=== PATIENT | male | born 1975 | race Caucasian/White ===

== ENCOUNTER 2019-05-22 10:02 | Emergency (ER) | payer BC ==
--- NOTE | 2019-05-22 10:43 | ER ---
Nurse's Notes [facility] Name: Fidel Betancourt Age: 43 yrs Sex: Male : 1975 Arrival Date: 05/22/2019 Time: 10:05 Bed 12 Private MD: Diagnosis: Puncture wound with foreign body of right middle finger without damage to nail Presentation: 05/22 10:21 Presenting complaint: Patient states: fish hook to right middle finger. Transition of iw care: patient was not received from another setting of care. Onset of symptoms was May 22, 2019. Risk Assessment: Do you want to hurt yourself or someone else? Patient reports no desire to harm self or others. Initial Sepsis Screen: Does the patient meet any 2 criteria? No. Patient's initial sepsis screen is negative. Does the patient have a suspected source of infection? No. Patient's initial sepsis screen is negative. Care prior to arrival: None. 10:21 Method Of Arrival: Ambulatory iw 10:21 Acuity: ALYCIA 4 iw Triage Assessment: 10:48 General: Appears in no apparent distress. Behavior is calm. iw Historical: - Allergies: 10:22 PENICILLINS; iw - Immunization history:: Last tetanus immunization: 5 years. - Social history:: Smoking status: unknown. - Ebola Screening: : Patient negative for fever greater than or equal to 101.5 degrees Fahrenheit, and additional compatible Ebola Virus Disease symptoms Patient denies exposure to infectious person Patient denies travel to an Ebola-affected area in the 21 days before illness onset No symptoms or risks identified at this time. Screenin:45 Abuse screen: Denies threats or abuse. Denies injuries from another. Nutritional iw screening: No deficits noted. Tuberculosis screening: No symptoms or risk factors identified. Fall Risk None identified. Assessment: 10:35 General: Appears in no apparent distress. Behavior is calm, cooperative. Pain: iw Complains of pain in palmar aspect of distal phalanx of right middle finger. Neuro: Level of Consciousness is awake, alert, obeys commands, Oriented to person, place, time, situation, Moves all extremities. Cardiovascular: Patient's skin is warm and dry. Respiratory: Respiratory effort is even, unlabored, Respiratory pattern is regular, symmetrical. GI: No signs and/or symptoms were reported involving the gastrointestinal system. Derm: Skin is intact, is healthy with good turgor. Musculoskeletal: Range of motion: intact in all extremities. Injury Description: Puncture sustained to palmar aspect of distal phalanx of right middle finger was sustained 30-60 minutes ago. Vital Signs: 10:23 BP 175 / 81; Pulse 88; Resp 16; Temp 98.2; Pulse Ox 100% on R/A; iw ED Course: 10:05 Patient arrived in ED. mr 10:17 Destiny Fam FNP-C is [facility]. kb 10:17 Dmitry Triana MD is Attending Physician. kb 10:20 Jessica Parrish, RN is Primary Nurse. iw 10:22 Triage completed. iw 10:24 Arm band placed on. iw 10:35 Patient has correct armband on for positive identification. iw 10:35 Assist provider with foreign body removal of a fish hook from right middle finger using iw hemostats, Set up for procedure. Performed by Destiny SAVAGE Patient tolerated well. Patient did not have IV access during this emergency room visit. 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 Exp: iw 10/18/2019. Lot #: [id number]. } Route: IM; Site: right deltoid; 10:59 Follow up: Response: No adverse reaction iw 10:35 Drug: Doxycycline 100 mg Route: PO; iw 10:59 Follow up: Response: No adverse reaction iw 10:49 Drug: Lidocaine (1 %) 1 vials Volume: 5 ml; Route: Infiltration; iw Outcome: 10:43 Discharge ordered by . kb 10:57 Discharged to home ambulatory, with family. iw 10:57 Condition: good 10:57 Discharge instructions given to patient, family, Instructed on discharge instructions, follow up and referral plans. medication usage, Demonstrated understanding of instructions, follow-up care, medications, Prescriptions given X 1. 10:58 Patient left the ED. iw Signatures: Destiny Fam FNP-C FNP-Xochitl Arleen Lucio Jessica Parrish, RN RN iw
[2019-05-22] MEDS ORDERED: LIDOCAINE 1% MPF 5 ML VIAL ONE (10:44)
--- NOTE | 2019-05-22 10:44 | EDPHYS ---
Physician Documentation [facility] Name: Fidel Betancourt Age: 43 yrs Sex: Male : 1975 Arrival Date: 05/22/2019 Time: 10:05 Bed 12 Private MD: ED Physician Dmitry Triana HPI: 05/22 10:53 This 43 yrs old Male presents to ER via Ambulatory with complaints of Fish kb hook in hand. 10:53 The patient or guardian reports the patient has a suspected foreign body, of the right kb middle finger. The reported likely foreign body is a fishhook. Onset: The symptoms/episode began/occurred just prior to arrival. Current symptoms: foreign body sensation. Treatment Prior to Arrival: tried to remove, but couldn't get out, and pushed further in. The patient has not experienced similar symptoms in the past. The patient has not recently seen a physician. Historical: - Allergies: 10:22 PENICILLINS; iw - Immunization history:: Last tetanus immunization: 5 years. - Social history:: Smoking status: unknown. - Ebola Screening: : Patient negative for fever greater than or equal to 101.5 degrees Fahrenheit, and additional compatible Ebola Virus Disease symptoms Patient denies exposure to infectious person Patient denies travel to an Ebola-affected area in the 21 days before illness onset No symptoms or risks identified at this time. ROS: 10:46 Constitutional: Negative for fever, chills, and weight loss, Cardiovascular: Negative kb for chest pain, palpitations, and edema, Respiratory: Negative for shortness of breath, cough, wheezing, and pleuritic chest pain, Abdomen/GI: Negative for abdominal pain, nausea, vomiting, diarrhea, and constipation, MS/Extremity: Negative for injury and deformity, Neuro: Negative for headache, weakness, numbness, tingling, and seizure. 10:46 Skin: Positive for puncture, of the palmar aspect of distal phalanx of right middle finger, FB. Exam: 10:46 Constitutional: This is a well developed, well nourished patient who is awake, alert, kb and in no acute distress. Head/Face: Normocephalic, atraumatic. Neck: Trachea midline, no thyromegaly or masses palpated, and no cervical lymphadenopathy. Supple, full range of motion without nuchal rigidity, or vertebral point tenderness. No Meningismus. Chest/axilla: Normal chest wall appearance and motion. Nontender with no deformity. No lesions are appreciated. Cardiovascular: Regular rate and rhythm with a normal S1 and S2. No gallops, murmurs, or rubs. Normal PMI, no JVD. No pulse deficits. Respiratory: Lungs have equal breath sounds bilaterally, clear to auscultation and percussion. No rales, rhonchi or wheezes noted. No increased work of breathing, no retractions or nasal flaring. Abdomen/GI: Soft, non-tender, with normal bowel sounds. No distension or tympany. No guarding or rebound. No evidence of tenderness throughout. MS/ Extremity: Pulses equal, no cyanosis. Neurovascular intact. Full, normal range of motion. Neuro: Awake and alert, GCS 15, oriented to person, place, time, and situation. Cranial nerves II-XII grossly intact. Motor strength 5/5 in all extremities. Sensory grossly intact. Cerebellar exam normal. Normal gait. 10:46 Skin: injury, puncture(s), that are superficial, of the palmar aspect of distal phalanx of right middle finger. Vital Signs: 10:23 BP 175 / 81; Pulse 88; Resp 16; Temp 98.2; Pulse Ox 100% on R/A; iw Procedures: 10:46 Foreign Body Removal: a fishhook, from the right palmar aspect of distal phalanx of kb right middle finger, by push through, steven cut and hook pulled out. Dressinx4s were used to dress the wound, The patient tolerated the removal well. MDM: 10:18 Patient medically screened. kb 10:29 Data reviewed: vital signs, nurses notes. Data interpreted: Pulse oximetry: on room air kb is 100 %. Interpretation: normal. Counseling: I had a detailed discussion with the patient and/or guardian regarding: the historical points, exam findings, and any diagnostic results supporting the discharge/admit diagnosis, the need for outpatient follow up, a family practitioner, to return to the emergency department if symptoms worsen or persist or if there are any questions or concerns that arise at home. 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 Exp: iw 10/18/2019. Lot #: [id number]. } Route: IM; Site: right deltoid; 10:59 Follow up: Response: No adverse reaction iw 10:35 Drug: Doxycycline 100 mg Route: PO; iw 10:59 Follow up: Response: No adverse reaction iw 10:49 Drug: Lidocaine (1 %) 1 vials Volume: 5 ml; Route: Infiltration; iw Disposition: 05/22/19 10:43 Discharged to Home. Impression: Puncture wound with foreign body of right middle finger without damage to nail. - Condition is Stable. - Discharge Instructions: Puncture Wound, [id number], Foreign Body. - Prescriptions for Doxycycline Hyclate 100 mg Oral Tablet - take 1 tablet by ORAL route every 12 hours; 14 tablet. - Medication Reconciliation Form, Thank You Letter, Antibiotic Education, Prescription Opioid Use form. - Follow up: Emergency Department; When: As needed; Reason: Worsening of condition. Follow up: Private Physician; When: 2 - 3 days; Reason: Recheck today's complaints, Continuance of care, Re-evaluation by your physician. Addendum: 05/27/2019 16:49 Co-signature as Attending Physician, Dmitry Triana MD I agree with the assessment and c trejo plan of care. Signatures: Destiny Fam, ED TECH-C ED TECH-Hig[place] Dmitry Triana MD MD cha Williams, Irene, RN RN iw Corrections: (The following items were deleted from the chart) 05/22 10:58 10:43 05/22/2019 10:43 Discharged to Home. Impression: Puncture wound with foreign body iw of right middle finger without damage to nail. Condition is Stable. Forms are Medication Reconciliation Form, Thank You Letter, Antibiotic Education, Prescription Opioid Use. Follow up: Emergency Department; When: As needed; Reason: Worsening of condition. Follow up: Private Physician; When: 2 - 3 days; Reason: Recheck today's complaints, Continuance of care, Re-evaluation by your physician. kb
[2019-05-22] MEDS ORDERED: TETANUS & DIPHTHERIA TOX,ADULT 0.5 ML VIAL ONE (10:45)
[2019-05-22] MEDS ORDERED: DOXYCYCLINE 100 MG CAP PO ONE (10:45)
== END 2019-05-22 10:58 | disposition home or self-care (01) ==
LOC: ER 10:02
DX: S61.242A Puncture wound with foreign body of right middle finger without damage to nail, initial encounter (principal); Z23 Encounter for immunization; Z88.0 Allergy status to penicillin
CPT/HCPCS: 90471; 90714; 99283

== ENCOUNTER 2019-10-08 09:23 | Emergency (ER) | payer BC ==
[2019-10-08] MEDS ORDERED: DIAZEPAM 5 MG TABLET ONE (09:54)
[2019-10-08] MEDS ORDERED: predniSONE 20 MG TAB ONE (09:55)
[2019-10-08] MEDS ORDERED: KETOROLAC 30 MG/ML INJ ONE (09:55)
[2019-10-08] MEDS ORDERED: LIDOCAINE 4% PATCH ONE (10:30)
--- NOTE | 2019-10-08 11:15 | ER ---
Nurse's Notes [facility] Name: Fidel Betancourt Jr Age: 44 yrs Sex: Male : 1975 Arrival Date: 10/08/2019 Time: 09:25 Bed 16 Private MD: Diagnosis: Low back pain;Strain of muscle, fascia and tendon of lower back Presentation: 10/08 09:35 Presenting complaint: Patient states: Low back pain that began yesterday evening after ss working out. Patient has a history of chronic back pain x 25 years, but states that this is the worse it has ever hurt. Transition of care: patient was not received from another setting of care. Onset of symptoms was October 07, 2019. Risk Assessment: Do you want to hurt yourself or someone else? Patient reports no desire to harm self or others. Initial Sepsis Screen: Does the patient meet any 2 criteria? HR > 90 bpm. Does the patient have a suspected source of infection? No. Patient's initial sepsis screen is negative. Care prior to arrival: None. 09:35 Method Of Arrival: Ambulatory ss 09:35 Acuity: ALYCIA 3 ss Historical: - Allergies: 09:39 PENICILLINS; ss - Home Meds: 09:39 None [Active]; ss - PMHx: 09:39 None; ss - PSHx: 09:39 None; ss - Immunization history:: Adult Immunizations up to date. - Social history:: Smoking status: Patient uses tobacco products, smokes one pack cigarettes per day. chewing tobacco. - Ebola Screening: : Patient denies exposure to infectious person Patient denies travel to an Ebola-affected area in the 21 days before illness onset. Screenin:32 Abuse screen: Denies threats or abuse. Nutritional screening: No deficits noted. rb1 Tuberculosis screening: No symptoms or risk factors identified. Fall Risk None identified. Assessment: 09:32 General: Appears uncomfortable, Behavior is calm, cooperative. General: Pt. reports he rb1 was working out with ropes and hurt is back.. Pain: Complains of pain in left low back and right low back Pain currently is 10 out of 10 on a pain scale. Pain began x 1 day. Neuro: Level of Consciousness is awake, alert, obeys commands, Oriented to person, place, time, situation. Cardiovascular: Capillary refill < 3 seconds is brisk in bilateral fingers. Respiratory: Airway is patent Respiratory effort is even, unlabored, Respiratory pattern is regular, symmetrical. GI: No signs and/or symptoms were reported involving the gastrointestinal system. : No signs and/or symptoms were reported regarding the genitourinary system. Derm: Skin is pink, warm \T\ dry. Musculoskeletal: Reports pain in left low back and right low back Pt. is not able to bend forward without excruciating pain. 10:30 Reassessment: Patient appears in no apparent distress at this time. No changes from rb1 previously documented assessment. 11:23 Reassessment: Patient appears in no apparent distress at this time. Patient and/or rb1 family updated on plan of care and expected duration. Pain level reassessed. Patient is alert, oriented x 3, equal unlabored respirations, skin warm/dry/pink. Patient states symptoms have improved. Vital Signs: 09:39 BP 170 / 95; Pulse 91; Resp 16; Temp 98.1(TE); Pulse Ox 100% on R/A; Weight 79.38 kg; Height 5 ft. 11 in. (180.34 cm); Pain 10/10; 10:30 BP 146 / 96; Pulse 80; Resp 17; Pulse Ox 99% on R/A; mh5 11:23 BP 133 / 94; Pulse 98; Resp 17; Pulse Ox 100% ; Pain 7/10; rb1 09:39 Body Mass Index 24.41 (79.38 kg, 180.34 cm) ED Course: 09:25 Patient arrived in ED. as 09:31 Indra Coffey NP is PHCP. pm1 09:31 Guillermo Ron MD is Attending Physician. pm1 09:32 Patient has correct armband on for positive identification. Bed in low position. Call rb1 light in reach. Side rails up X 1. 09:38 Triage completed. ss 09:39 Arm band placed on right wrist. ss 09:51 Hansa Sidhu, MEHRDAD is Primary Nurse. rb1 10:31 Pulse ox on. NIBP on. mh5 11:34 No provider procedures requiring assistance completed. Patient did not have IV access rb1 during this emergency room visit. 11:44 Lumbar Spine (3 Views) XRAY In Process Unspecified. EDMS Administered Medications: 09:53 Drug: Valium 10 mg Route: PO; rb1 10:35 Follow up: Response: No adverse reaction rb1 09:53 Drug: predniSONE 60 mg Route: PO; rb1 10:35 Follow up: Response: No adverse reaction rb1 09:53 Drug: TORadol 60 mg Route: IM; Site: left gluteus; rb1 10:08 Follow up: Response: No adverse reaction rb1 10:35 Drug: Lidoderm 5 % (700 mg/patch) 1 patches Route: Topical; Site: affected area; rb1 Outcome: 11:15 Discharge ordered by MD. pm1 11:34 Discharged to home ambulatory, with family. rb1 11:34 Condition: stable 11:34 Discharge instructions given to patient, Instructed on discharge instructions, follow up and referral plans. medication usage, Demonstrated understanding of instructions, follow-up care, medications, Prescriptions given X 4. 11:35 Patient left the ED. rb1 Signatures: Dispatcher [employer] EDShanell Moncada Shelby, RN RN ss Hansa Sidhu RN RN rb1 Indra Coffey NP NUT CRACKER pm1 Alyson Ruggiero [facility]
--- NOTE | 2019-10-08 11:15 | EDPHYS ---
Physician Documentation [facility] Name: Fidel Betancourt Jr Age: 44 yrs Sex: Male : 1975 Arrival Date: 10/08/2019 Time: 09:25 Bed 16 Private MD: ED Physician Guillermo Ron HPI: 10/08 09:50 This 44 yrs old Male presents to ER via Ambulatory with complaints of Back pm1 Pain. 09:50 The patient presents with pain that is acute. The symptoms are located in the left low pm1 back. Onset: The symptoms/episode began/occurred last night. The pain does not radiate. Associated signs and symptoms: The patient has no apparent associated signs or symptoms, Pertinent negatives: abdominal pain, chest pain, dysuria, fever, headache, numbness, tingling, weakness. The problem was sustained performing rope exercises were he was making a circular motion with both hands causing him to hurt his back. Modifying factors: The patient symptoms are alleviated by remaining still, standing, the patient symptoms are aggravated by bending, sitting. Severity of symptoms: in the emergency department the symptoms are unchanged. Historical: - Allergies: 09:39 PENICILLINS; ss - Home Meds: 09:39 None [Active]; ss - PMHx: 09:39 None; ss - PSHx: 09:39 None; ss - Immunization history:: Adult Immunizations up to date. - Social history:: Smoking status: Patient uses tobacco products, smokes one pack cigarettes per day. chewing tobacco. - Ebola Screening: : Patient denies exposure to infectious person Patient denies travel to an Ebola-affected area in the 21 days before illness onset. ROS: 09:50 Constitutional: Negative for fever, chills, and weight loss, Neck: Negative for injury, pm1 pain, and swelling, Cardiovascular: Negative for chest pain, palpitations, and edema, Respiratory: Negative for shortness of breath, cough, wheezing, and pleuritic chest pain, Abdomen/GI: Negative for abdominal pain, nausea, vomiting, diarrhea, and constipation. 09:50 : Negative for injury, bleeding, discharge, and swelling, MS/Extremity: Negative for injury and deformity, Skin: Negative for injury, rash, and discoloration, Neuro: Negative for headache, weakness, numbness, tingling, and seizure. 09:50 Back: Positive for pain with movement, of the left low back, Negative for radiated pain. Exam: 09:50 Constitutional: This is a well developed, well nourished patient who is awake, alert, pm1 and in no acute distress. Head/Face: Normocephalic, atraumatic. Neck: Trachea midline, no thyromegaly or masses palpated, and no cervical lymphadenopathy. Supple, full range of motion without nuchal rigidity, or vertebral point tenderness. No Meningismus. Chest/axilla: Normal chest wall appearance and motion. Nontender with no deformity. No lesions are appreciated. Cardiovascular: Regular rate and rhythm with a normal S1 and S2. No gallops, murmurs, or rubs. Normal PMI, no JVD. No pulse deficits. Respiratory: Lungs have equal breath sounds bilaterally, clear to auscultation and percussion. No rales, rhonchi or wheezes noted. No increased work of breathing, no retractions or nasal flaring. 09:50 Skin: Warm, dry with normal turgor. Normal color with no rashes, no lesions, and no evidence of cellulitis. MS/ Extremity: Pulses equal, no cyanosis. Neurovascular intact. Full, normal range of motion. 09:50 Back: normal spinal alignment noted, vertebral tenderness, is not appreciated, muscle spasm, is appreciated in the left low back. 09:50 Neuro: Orientation: is normal, Motor: is normal, moves all fours, Sensation: is normal, no obvious gross deficits, Gait: is steady, at a normal pace, without difficulty. Vital Signs: 09:39 BP 170 / 95; Pulse 91; Resp 16; Temp 98.1(TE); Pulse Ox 100% on R/A; Weight 79.38 kg; ss Height 5 ft. 11 in. (180.34 cm); Pain 10/10; 10:30 BP 146 / 96; Pulse 80; Resp 17; Pulse Ox 99% on R/A; mh5 11:23 BP 133 / 94; Pulse 98; Resp 17; Pulse Ox 100% ; Pain 7/10; rb1 09:39 Body Mass Index 24.41 (79.38 kg, 180.34 cm) MDM: 09:36 Patient medically screened. pm1 10:39 Data reviewed: vital signs. Data interpreted: Pulse oximetry: on room air is 99 %. pm1 Interpretation: normal. 11:14 Counseling: I had a detailed discussion with the patient and/or guardian regarding: the pm1 historical points, exam findings, and any diagnostic results supporting the discharge/admit diagnosis, radiology results, the need for outpatient follow up, a family practitioner, a neurosurgeon, to return to the emergency department if symptoms worsen or persist or if there are any questions or concerns that arise at home. 10/08 09:50 Order name: Lumbar Spine (3 Views) XRAY pm1 Administered Medications: 09:53 Drug: Valium 10 mg Route: PO; rb1 10:35 Follow up: Response: No adverse reaction rb1 09:53 Drug: predniSONE 60 mg Route: PO; rb1 10:35 Follow up: Response: No adverse reaction rb1 09:53 Drug: TORadol 60 mg Route: IM; Site: left gluteus; rb1 10:08 Follow up: Response: No adverse reaction rb1 10:35 Drug: Lidoderm 5 % (700 mg/patch) 1 patches Route: Topical; Site: affected area; rb1 Disposition: 12:41 Co-signature as Attending Physician, Guillermo Ron MD. rn Disposition: 10/08/19 11:15 Discharged to Home. Impression: Low back pain, Strain of muscle, fascia and tendon of lower back. - Condition is Stable. - Discharge Instructions: Back Pain, Adult, Musculoskeletal Pain, Back Injury Prevention, Awnp-of-Cnrl. - Prescriptions for Valium 5 mg Oral Tablet - take 1 tablet by ORAL route every 8 hours As needed; 20 tablet. Diclofenac Sodium 75 mg Oral Tablet Sustained Release - take 1 tablet by ORAL route 2 times per day; 30 tablet. Medrol (Gerber) 4 mg Oral Tablets, Dose Pack - take 1 tablet by ORAL route as directed - follow package instructions; 1 packet. Lidoderm 5 % Topical adhesive patch,medicated - apply 1 patch by TRANSDERMAL route once daily As needed; 30 Transdermal Patch. - Work release form, Medication Reconciliation Form, Thank You Letter, Antibiotic Education, Prescription Opioid Use form. - Follow up: Emergency Department; When: As needed; Reason: Worsening of condition. Follow up: Private Physician; When: 2 - 3 days; Reason: Recheck today's complaints, Continuance of care, Re-evaluation by your physician. - Problem is new. - Symptoms have improved. Signatures: Dispatcher [employer] EDMS Guillermo Ron MD MD rn Smirch, Shelby RN RN ss Hansa Sidhu RN RN rb1 Indra Coffey, STEVE STAMP COLLECTOR pm1 Corrections: (The following items were deleted from the chart) 11:35 11:15 10/08/2019 11:15 Discharged to Home. Impression: Low back pain; Strain of muscle, rb1 fascia and tendon of lower back. Condition is Stable. Forms are Medication Reconciliation Form, Thank You Letter, Antibiotic Education, Prescription Opioid Use. Follow up: Emergency Department; When: As needed; Reason: Worsening of condition. Follow up: Private Physician; When: 2 - 3 days; Reason: Recheck today's complaints, Continuance of care, Re-evaluation by your physician. Problem is new. Symptoms have improved. pm1
[2019-10-08 11:52] VITALS: TEMP 98.1
--- NOTE | 2019-10-08 11:54 | RAD REPORT ---
EXAM DESCRIPTION: RAD - Lumbar Spine 3 Views - 10/08/2019 11:43 am CLINICAL HISTORY: Back pain FINDINGS: The alignment of the lumbar spine is satisfactory. No fracture or dislocation is seen. Sacralization of L5 is present Minimal spondylosis involves the lumbar spine
[2019-10-08 11:55] VITALS: BP 133/94; O2SAT 100
== END 2019-10-08 11:35 | disposition home or self-care (01) ==
LOC: ER 09:23
DX: S39.012A Strain of muscle, fascia and tendon of lower back, initial encounter (principal); X58.XXXA Exposure to other specified factors, initial encounter; Y93.89 Activity, other specified; Y92.9 Unspecified place or not applicable; Z88.0 Allergy status to penicillin; F17.220 Nicotine dependence, chewing tobacco, uncomplicated
CPT/HCPCS: 72100; 96372; 99284; J7512

== ENCOUNTER 2021-01-07 09:21 | Emergency (ER) | payer BC ==
[2021-01-07] MEDS ORDERED: KETOROLAC 30 MG/ML INJ ONE (10:01)
[2021-01-07] MEDS ORDERED: DIAZEPAM 5 MG TABLET ONE (10:01)
[2021-01-07] MEDS ORDERED: predniSONE 20 MG TAB ONE (10:01)
[2021-01-07] MEDS ORDERED: LIDOCAINE 4% PATCH ONE (10:02)
--- NOTE | 2021-01-07 10:41 | EDPHYS ---
Physician Documentation [facility] Name: Fidel Betancourt Jr Age: 45 yrs Sex: Male : 1975 Arrival Date: 01/07/2021 Time: : Bed 18 Private MD: ED Physician Guillermo Ron HPI: 01/07 09:37 This 45 yrs old Male presents to ER via Ambulatory with complaints of Back kb Pain. 09:37 The patient presents with pain that is acute. The symptoms are located in the left low kb back. Onset: The symptoms/episode began/occurred 1 week(s) ago. The pain radiates to the left hamstring. Associated signs and symptoms: Pertinent positives: none Pertinent negatives: incontinence, numbness, tingling, weakness. The problem was sustained when lifting heavy object. Modifying factors: The patient symptoms are alleviated by nothing, the patient symptoms are aggravated by any movement. Severity of symptoms: At their worst the symptoms were moderate, in the emergency department the symptoms are unchanged. The patient has experienced a previous episode, last year. The patient has not recently seen a physician. Pt states he started having low back pain when moving plants before the freeze last weekend. States he slipped on the ice after that and made the pain worse. Now pain is more on left lower area and radiates down the back of left leg. States he has had similar pain before, was seen here and whatever was given during that visit made the pain go away so that is why he came back. States this morning the pain made it hard to get out of bed. no vertebral tenderness noted. . Historical: - Allergies: 09:33 PENICILLINS; iw - Home Meds: : None [Active]; iw - PMHx: 09: None; iw - PSHx: 09:33 None; iw - Immunization history:: Adult Immunizations not up to date. - Social history:: Smoking status: Patient/guardian denies using tobacco, the patient reports quitting approximately 2 years ago. ROS: 09:33 Constitutional: Negative for fever, chills, and weight loss, Cardiovascular: Negative kb for chest pain, palpitations, and edema, Respiratory: Negative for shortness of breath, cough, wheezing, and pleuritic chest pain, Abdomen/GI: Negative for abdominal pain, nausea, vomiting, diarrhea, and constipation, : Negative for injury, bleeding, discharge, and swelling, MS/Extremity: Negative for injury and deformity, Skin: Negative for injury, rash, and discoloration, Neuro: Negative for headache, weakness, numbness, tingling, and seizure. 09:33 Back: Positive for pain at rest, pain with movement, radiated pain, of the left low back. Exam: 09:34 Constitutional: This is a well developed, well nourished patient who is awake, alert, kb and in no acute distress. Head/Face: Normocephalic, atraumatic. Cardiovascular: Regular rate and rhythm with a normal S1 and S2. No gallops, murmurs, or rubs. Normal PMI, no JVD. No pulse deficits. Respiratory: Lungs have equal breath sounds bilaterally, clear to auscultation and percussion. No rales, rhonchi or wheezes noted. No increased work of breathing, no retractions or nasal flaring. Skin: Warm, dry with normal turgor. Normal color with no rashes, no lesions, and no evidence of cellulitis. MS/ Extremity: Pulses equal, no cyanosis. Neurovascular intact. Full, normal range of motion. 09:34 Back: pain, that is moderate, of the left low back, ROM is painful, normal spinal alignment noted. 09:34 Neuro: Orientation: is normal, to person, place, time \T\ situation. Motor: moves all fours, Sensation: is normal, Gait: is steady, at a normal pace. Vital Signs: 09:30 BP 155 / 101; Pulse 110; Resp 16; Pulse Ox 100% on R/A; Weight 83.91 kg; Height 5 ft. iw 11 in. (180.34 cm); Pain 8/10; 10:37 BP 142 / 91; Pulse 96; Resp 16; Pulse Ox 99% ; bp 11:11 BP 137 / 89; Pulse 89; Resp 16; Pulse Ox 99% ; bp 09:30 Body Mass Index 25.80 (83.91 kg, 180.34 cm) iw MDM: 09:24 Patient medically screened. kb 09:28 Data reviewed: vital signs, nurses notes. Data interpreted: Pulse oximetry: on room air kb is 100 %. Interpretation: normal. Counseling: I had a detailed discussion with the patient and/or guardian regarding: the historical points, exam findings, and any diagnostic results supporting the discharge/admit diagnosis, the need for outpatient follow up, a family practitioner, to return to the emergency department if symptoms worsen or persist or if there are any questions or concerns that arise at home. Administered Medications: 09:54 Drug: TORadol 60 mg Route: IM; Site: right gluteus; bp 10:10 Follow up: Response: Pain is decreased bp 09:54 Drug: predniSONE 60 mg Route: PO; bp 10:09 Follow up: Response: Pain is decreased bp 09:54 Drug: Lidoderm 5 % (700 mg/patch) 1 patches Route: Topical; Site: affected area; bp 09:55 Drug: Valium 5 mg Route: PO; bp 10:10 Follow up: Response: Pain is decreased bp Disposition: 11:47 Co-signature as Attending Physician, Guillermo Ron MD. rn Disposition: 01/07/21 10:40 Discharged to Home. Impression: Low back pain, Sciatica, left side. - Condition is Stable. - Discharge Instructions: Back Pain, Adult, Kell-wl-Affz, Sciatica, Scyv-py-Isvo, Back Exercises, Rshg-mu-Gtah. - Prescriptions for Prednisone 20 mg Oral Tablet - take 1 tablet by ORAL route once daily for 5 days; 5 tablet. Valium 5 mg Oral Tablet - take 1 tablet by ORAL route every 8 hours As needed; 6 tablet. Diclofenac Sodium 75 mg Oral Tablet, Delayed Release (E.C.) - take 1 tablet by ORAL route 2 times per day As needed; 30 tablet. - Medication Reconciliation Form, Thank You Letter, Antibiotic Education, Prescription Opioid Use, Work release form form. - Follow up: Emergency Department; When: As needed; Reason: Worsening of condition. Follow up: Private Physician; When: 2 - 3 days; Reason: Recheck today's complaints, Continuance of care, Re-evaluation by your physician. Signatures: Destiny Fam FNP-C FNP-Jessica Farnsworth RN RN iw Nieto, Roman, MD MD rn Peltier, Brian, RN RN bp Corrections: (The following items were deleted from the chart) 11:14 10:40 01/07/2021 10:40 Discharged to Home. Impression: Low back pain; Sciatica, left bp side. Condition is Stable. Discharge Instructions: Back Pain, Adult, Czgd-fu-Mssj, Sciatica, Zedz-xv-Dbxa, Back Exercises, Ouva-ju-Ekow. Prescriptions for Prednisone 20 mg Oral Tablet - take 1 tablet by ORAL route once daily for 5 days; 5 tablet, Valium 5 mg Oral Tablet - take 1 tablet by ORAL route every 8 hours As needed; 6 tablet, Diclofenac Sodium 75 mg Oral Tablet, Delayed Release (E.C.) - take 1 tablet by ORAL route 2 times per day As needed; 30 tablet. and Forms are Medication Reconciliation Form, Thank You Letter, Antibiotic Education, Prescription Opioid Use. Follow up: Emergency Department; When: As needed; Reason: Worsening of condition. Follow up: Private Physician; When: 2 - 3 days; Reason: Recheck today's complaints, Continuance of care, Re-evaluation by your physician. kb
--- NOTE | 2021-01-07 10:41 | ER ---
Nurse's Notes [facility] Name: Fidel Betancourt Jr Age: 45 yrs Sex: Male : 1975 Arrival Date: 01/07/2021 Time: 09: Bed 18 Private MD: Diagnosis: Low back pain;Sciatica, left side Presentation: 01/07 09:30 Chief complaint: Patient states: low back pain since 2-15 , slipped on ice and iw aggravated it even more. Coronavirus screen: At this time, the client does not indicate any symptoms associated with coronavirus-19. Ebola Screen: Patient negative for fever greater than or equal to 101.5 degrees Fahrenheit, and additional compatible Ebola Virus Disease symptoms Patient denies exposure to infectious person. Patient denies travel to an Ebola-affected area in the 21 days before illness onset. No symptoms or risks identified at this time. Initial Sepsis Screen: Does the patient meet any 2 criteria? No. Patient's initial sepsis screen is negative. Does the patient have a suspected source of infection? No. Patient's initial sepsis screen is negative. Risk Assessment: Do you want to hurt yourself or someone else? Patient reports no desire to harm self or others. Onset of symptoms was January 02, 2021. 09:30 Method Of Arrival: Ambulatory iw 09:30 Acuity: ALYCIA 4 iw Triage Assessment: 09:34 General: Appears in no apparent distress. uncomfortable, Behavior is calm, cooperative, bp appropriate for age. Pain: Complains of pain in back. EENT: No deficits noted. Neuro: Level of Consciousness is awake, alert, obeys commands, Oriented to Appropriate for age Gait is steady. Cardiovascular: No deficits noted. Respiratory: No deficits noted. GI: No signs and/or symptoms were reported involving the gastrointestinal system. : No signs and/or symptoms were reported regarding the genitourinary system. Derm: No deficits noted. Musculoskeletal: Circulation, motion, and sensation intact. Range of motion: intact in all extremities. Historical: - Allergies: 09:33 PENICILLINS; iw - Home Meds: 09:33 None [Active]; iw - PMHx: 09:33 None; iw - PSHx: 09:33 None; iw - Immunization history:: Adult Immunizations not up to date. - Social history:: Smoking status: Patient/guardian denies using tobacco, the patient reports quitting approximately 2 years ago. Screenin:35 Abuse screen: Denies threats or abuse. Denies injuries from another. Nutritional bp screening: No deficits noted. Tuberculosis screening: No symptoms or risk factors identified. Fall Risk None identified. Assessment: 09:34 General: SEE TRIAGE NOTE. bp 10:38 Reassessment: No changes from previously documented assessment. Patient and/or family bp updated on plan of care and expected duration. Pain level reassessed. Patient is alert, oriented x 3, equal unlabored respirations, skin warm/dry/pink. 11:03 Reassessment: PT D/C HOME AMBULATORY, DX WITH SCIATICA. Neuro: Gait is steady. bp Vital Signs: 09:30 BP 155 / 101; Pulse 110; Resp 16; Pulse Ox 100% on R/A; Weight 83.91 kg; Height 5 ft. iw 11 in. (180.34 cm); Pain 8/10; 10:37 BP 142 / 91; Pulse 96; Resp 16; Pulse Ox 99% ; bp 11:11 BP 137 / 89; Pulse 89; Resp 16; Pulse Ox 99% ; bp 09:30 Body Mass Index 25.80 (83.91 kg, 180.34 cm) iw ED Course: 09:22 Patient arrived in ED. ag5 09:23 Destiny Fam FNP-C [facility]. kb 09:23 Guillermo Ron MD is Attending Physician. kb 09:29 Janak De La Cruz, MEHRDAD is Primary Nurse. bp 09:33 Triage completed. iw 09:33 Arm band placed on. iw 09:35 Patient has correct armband on for positive identification. Bed in low position. Call bp light in reach. Side rails up X2. 11:03 No provider procedures requiring assistance completed. Patient did not have IV access bp during this emergency room visit. Administered Medications: 09:54 Drug: TORadol 60 mg Route: IM; Site: right gluteus; bp 10:10 Follow up: Response: Pain is decreased bp 09:54 Drug: predniSONE 60 mg Route: PO; bp 10:09 Follow up: Response: Pain is decreased bp 09:54 Drug: Lidoderm 5 % (700 mg/patch) 1 patches Route: Topical; Site: affected area; bp 09:55 Drug: Valium 5 mg Route: PO; bp 10:10 Follow up: Response: Pain is decreased bp Outcome: 10:40 Discharge ordered by . radha 11:11 Discharged to home ambulatory. bp 11:11 Condition: stable 11:11 Discharge instructions given to patient, Instructed on discharge instructions, follow up and referral plans. medication usage, Demonstrated understanding of instructions, follow-up care, medications, Prescriptions given X 3. 11:14 Patient left the ED. bp Signatures: Destiny Fam, INSTRUMENT ROOM TECHNICIAN-C INSTRUMENT ROOM TECHNICIAN-Jessica Farnsworth RN RN iw Janak De La Cruz RN RN Bernard Venegas ag5
[2021-01-07 11:20] VITALS: O2SAT 99
[2021-01-07 11:21] VITALS: BP 137/89
== END 2021-01-07 11:14 | disposition home or self-care (01) ==
LOC: ER 09:21
DX: M54.32 Sciatica, left side (principal); Z88.0 Allergy status to penicillin
CPT/HCPCS: 96372; 99283; J7512

== ENCOUNTER 2022-07-04 19:32 | Emergency (ER) | payer BC ==
--- OUTSIDE RECORDS SUMMARY | 2022-07-04 19:34 | XMS REPORT | Continuity of Care Document ---
:1975 Author Organization [facility] t Address [address] [place] [address] [address] [place] [address] Care Team Providers Name Role Phone PCP, PATIENT DOES NOT HAVE A Primary Care Physician Unavaila JOHNSON Chi Attending Clinician Unavailable Ac NUNES, Celena T Attending Clinician Unavailable Johnson Lowry MD Attending Clinician Doctor Unassigned, [place] Attending Clinician Unavailable Evelyne Parrish DO Attending Clinician Payers Payer Name Policy Type Policy Number Effective Date Expiration Date [id number] 2020 00:00:00 Problems Condition Condition Condition Status Onset Resolution Last Treating Co mments Source Name Details Category Date Date Treatment Clinician Date Chronic Chronic Disease Active Univers bilateral bilateral 7-05 ity of low back low back 00:00: [place] pain pain 00 Medical without without Branch sciatica sciatica Allergies, Adverse Reactions, Alerts Allergy Allergy Status Severity Reaction(s) Onset Inactive Treating Comm ents Source Name Type Date Date Clinician NO KNOWN Drug Active Univers ALLERGIE Class ity of S [facility] Social History Social Habit Start Date Stop Date Quantity Comments Source Exposure to Not sure [facility] SARS-CoV-2 (event) Medica l Branch Sex Assigned At [birth year] [facility] 00:00:00 00:00:00 Medical Branch Smoking Status Start Date Stop Date Source Unknown if ever smoked [facility] Medications Ordered Filled Start Stop Current Ordering Indication Dosage Frequency Signature Comments Components Source Medication Medication Date Date Medication? Clinician (SIG) Name Name predniSONE No [id number] 50mg Take 5 Univers 10 mg 04-18 tablets by ity of tablet 00:00: 04:59 mouth [place] 00 :00 daily for Medical 4 days. [place] famotidine No 20mg 20 mg, Univ ers (PEPCID AC) 04-17 Oral, ity of tablet 20 20:15: 19:13 [place]CE, [place] dose, [facility] 04/17/21 at Branch 1515, OMER predniSONE No 50mg 50 mg, Univ ers (DELTASONE) 04-17 Oral, ity of tablet 50 20:15: 19:12 [place] :00 dose, [facility] 04/17/21 at Branch 1515, OMER No known No Univers medications 04-17 ity of 14:06: [address] No known No Univers medications 04-17 ity of 14:06: [address] Vital Signs Vital Name Observation Time Observation Value Comments Source Systolic blood 2021-04-17 19:05:00 177 mm[Hg] Univer sity of pressure [facility] Diastolic blood 2021-04-17 19:05:00 86 mm[Hg] [facility] 2021-04-17 19:05:00 81 /min [facility] Body temperature 2021-04-17 19:05:00 37.39 [facility] Respiratory rate 2021-04-17 19:05:00 18 /min [facility] Body weight 2021-04-17 19:05:00 81.647 kg [facility] Oxygen saturation in 2021-04-17 19:05:00 96 /min [facility] blood by [facility] Pulse oximetry Branch Procedures Procedure Date / Time Performed Performing Clinician [facility] e REFERRAL- 2022-05-11 05:01:00 Doctor Unassigned, No [facility] REQUEST/RESPONSE Name Medical [place] NOTICE OF PRIVACY 2021-04-17 18:51:29 Doctor Unassigned, [facility] CONSENT/REFUSAL FOR 2021-04-17 18:51:04 Doctor Unassigned, No Un [facility] DIAGNOSIS AND Name [facility] TREATMENT Encounters Start End Encounter Admission Attending Care Care Encounter Source Date/Time Date/Time Type Type Clinicians Facility Department ID 2022-05-28 2022-05-28 Outpatient R [facility] [id number] Univers 13:00:00 13:00:00 [id number] ity of [facility] 2022-05-22 2022-05-22 [facility] [id number] Univers 08:00:00 09:31:45 JOHNSON ity of [facility] 2022-05-22 2022-05-22 Ancillary Celena Shen RUST [id number] Univers 08:00:00 09:31:45 Visit Johnson Lowry [id number] ity of [id number] [place] [facility] [id number] Oh dical [facility] [address] Branch BUILDING 2022-05-11 2022-05-11 Orders Doctor ELLA [id number] Univers 00:00:00 00:00:00 Only Unassigned, VIRAJ [id number] ity of [place] [facility] [id number] Barry as [phone] [facility] [address] [place] 2021-04-17 2021-04-17 Emergency [facility] [id number] Univers 14:06:00 15:40:00 Evelyne Dempsey [id number] it[place] of [id number] [phone] [facility] 0[address] Branch 2021-04-17 2021-04-17 Emergency X RUST ERT [id number] Univers 13:52:00 13:52:00 ity of [facility] Results This patient has no known results.
[2022-07-04] MEDS ORDERED: MEPERIDINE HCL 25 MG/ML SYR ONE (19:58)
[2022-07-04] MEDS ORDERED: KETOROLAC 30 MG/ML INJ ONE (19:58)
--- NOTE | 2022-07-04 20:52 | RAD REPORT ---
EXAM DESCRIPTION: CT - Spine Lumbar Wo Con - 07/04/2022 8:17 pm CLINICAL HISTORY: worsening low back pain COMPARISON: None. TECHNIQUE: Thin section axial imaging of the lumbar spine was performed. Sagittal and coronal recon struction images were generated and reviewed. All CT scans are performed using dose optimization technique as appropriate and may include automated exposure control or mA/KV adjustment according to patient size. FINDINGS: Lumbar bodies are normal in height and alignment. The L5 body is partially sacralized. L5- S1 is not believed to be a movable disc level. No fracture or acute vertebral body finding. No parasp inal soft tissue mass. L4-5 disc level shows loss in disc height. Remaining lumbar disc heights are preserved. The T12-L1 th ru L3-4 disc level shows no herniation or significant disc bulge. No canal or foramen stenosis. Right paracentral L4-5 disc herniation is present estimated at 10-12 mm in size. This flattens the ri ght side of thecal sac. Disc bulge extends into the right exit foramen where there is foraminal steno sis. Correlation is needed with any right lower extremity radicular symptoms. There is no central spi nal stenosis. Left foramen is not significantly narrowed. The nonmovable L5-S1 disc level shows no suspicious finding. IMPRESSION: Right-side central canal L4-5 disc herniation causing flattening of the thecal sac and m ass effect on the right L5 nerve root. Correlation is needed with any right lower extremity radicular symptoms. No fracture or acute vertebral body finding. No other significant findings noted.
--- NOTE | 2022-07-04 21:11 | EDPHYS ---
Physician Documentation [facility] Name: Fidel Betancourt Jr Age: 46 yrs Sex: Male : 1975 Arrival Date: 07/04/2022 Time: 19:37 Bed 6 Private MD: ED Physician Guillermo Ron HPI: 07/04 20:04 This 46 yrs old Male presents to ER via EMS with complaints of back pain/back spasm. rn 20:04 The patient presents with pain that is chronic, with no known mechanism of injury. The rn symptoms are located in the left low back and right low back. Onset: The symptoms/episode began/occurred. 20:05 Onset: The symptoms/episode began/occurred 1 week(s) ago. The pain does not radiate. rn Associated signs and symptoms: Pertinent negatives: abdominal pain, chest pain, fever, incontinence, numbness, tingling, urinary retention, vomiting, weakness. Modifying factors: The patient symptoms are alleviated by remaining still, the patient symptoms are aggravated by any movement. Severity of symptoms: At their worst the symptoms were moderate, in the emergency department the symptoms have improved. The patient has experienced similar episodes in the past, chronically. The patient has not recently seen a physician. Pt reports back pain and problems for years, since 22 years old, comes and goes, seen by back specialist recently, told just needs PT. Reports this past week picked up a piece of paper off ground and back started hurting again. Usually goes away or gets better with muscle relaxer/steroid/pain meds, but not this time. No acute neurological complaints, feels like his normal back pain, just not better with prescriptions. Given morphine by EMS and feels much better. . Historical: - Allergies: 19:40 PENICILLINS; as6 - PMHx: 19:40 Hypertensive disorder; as6 - PSHx: 19:40 None; as6 - Immunization history:: Client reports receiving the 2nd dose of the Covid vaccine, pfizer. - Social history:: Smoking status: Patient reports the use of cigarette tobacco products, smokes one pack cigarettes per day. - Family history:: not pertinent. - Hospitalizations: : No recent hospitalization is reported. ROS: 20:05 Constitutional: Negative for fever, chills, and weight loss, Neck: Negative for injury, rn pain, and swelling, Cardiovascular: Negative for chest pain, palpitations, and edema, Respiratory: Negative for shortness of breath, cough, wheezing, and pleuritic chest pain, Abdomen/GI: Negative for abdominal pain, nausea, vomiting, diarrhea, and constipation, Back: + back pain, neg for injury : Negative for injury, bleeding, discharge, and swelling, MS/Extremity: Negative for injury and deformity, Skin: Negative for injury, rash, and discoloration, Neuro: Negative for headache, weakness, numbness, tingling, and seizure. Exam: 20:05 Constitutional: This is a well developed, well nourished patient who is awake, alert, rn and in no acute distress. Head/Face: Normocephalic, atraumatic. Cardiovascular: Tachycardic, regular. No pulse deficits. Respiratory: No increased work of breathing, no retractions or nasal flaring. Abdomen/GI: Soft, non-tender Skin: Warm, dry MS/ Extremity: Pulses equal, no cyanosis. Neuro: Awake and alert, GCS 15, oriented to person, place, time, and situation. Cranial nerves II-XII grossly intact. Motor strength 5/5 in all extremities. Sensory grossly intact. Cerebellar exam normal. Vital Signs: 19:37 BP 136 / 102; Pulse 112; Resp 12 S; Temp 98.3(O); Pulse Ox 96% on R/A; Weight 80.74 kg as6 (R); Height 5 ft. 10 in. (177.80 cm) (R); Pain 1/10; 20:44 BP 133 / 88; Pulse 70; Resp 19; Pulse Ox 96% on R/A; ld1 21:23 BP 128 / 88; Pulse 69; Resp 14 S; Pulse Ox 100% on R/A; Pain 0/10; aa9 19:37 Body Mass Index 25.54 (80.74 kg, 177.80 cm) as6 MDM: 19:41 Patient medically screened. rn 21:08 Differential diagnosis: Osteoarthritis ruptured disc, sprain, chronic back pain, muscle rn spasm. Data reviewed: vital signs, nurses notes, old medical records, radiologic studies, CT scan, and as a result, I will discharge patient. Counseling: I had a detailed discussion with the patient and/or guardian regarding: the historical points, exam findings, and any diagnostic results supporting the discharge/admit diagnosis, radiology results, the need for outpatient follow up, to return to the emergency department if symptoms worsen or persist or if there are any questions or concerns that arise at home. Response to treatment: the patient's symptoms have markedly improved after treatment, the patient's symptoms have resolved after treatment, the patient's condition has returned to base line, the patient is now symptom free, and as a result, I will discharge patient. Special discussion: I discussed with the patient/guardian in detail that at this point there is no indication for admission to the hospital. It is understood, however, that if the symptoms persist or worsen the patient needs to return immediately for re-evaluation. Based on the history and exam findings, there is no indication for further emergent testing or inpatient evaluation. I discussed with the patient/guardian the need to see the back specialist for further evaluation of the symptoms. ED course: CT lumbar spine shows disk herniation with nerve root involvement, pain is now resolved, no new neurological complaints or findings. Will dc home with spine f/u.. 07/04 19:42 Order name: CT Lumbar Spine Wo Con; Complete Time: 20:58 rn 07/04 19:43 Order name: IV Start; Complete Time: 19:44 rn Administered Medications: 19:52 Drug: Demerol (meperidine) 25 mg Route: IVP; Site: right antecubital; as6 19:52 Drug: Ketorolac 15 mg Route: IVP; Site: right antecubital; as6 Disposition Summary: 07/04/22 21:10 Discharge Ordered Location: Home rn Problem: chronic rn Symptoms: have improved rn Condition: Stable rn Diagnosis - Low back pain rn - Lumbar disk herniation rn Followup: rn - With: Private Physician - When: As needed - Reason: Recheck today's complaints, Re-evaluation by your physician Discharge Instructions: - Discharge Summary Sheet rn - Chronic Back Pain rn - Herniated Disk rn - Musculoskeletal Pain rn Forms: - Medication Reconciliation Form rn - Thank You Letter rn - Antibiotic travel med surg rn - Prescription Opioid Use rn Prescriptions: - Tramadol 50 mg Oral Tablet - take 1 tablet by ORAL route every 8 hours as needed; 12 tablet; Refills: 0, rn Product Selection Permitted Signatures: Dispatcher [employer] EDMS Guillermo Ron MD MD rn Slawson, Ashby, RN RN as6
--- NOTE | 2022-07-04 21:11 | ER ---
Nurse's Notes [facility] Name: Fidel Betancourt Jr Age: 46 yrs Sex: Male : 1975 Arrival Date: 07/04/2022 Time: 19:37 Bed 6 Private MD: Diagnosis: Low back pain;Lumbar disk herniation Presentation: 07/04 19:37 Chief complaint: EMS states: called out for back pain. Coronavirus screen: At this as6 time, the client does not indicate any symptoms associated with coronavirus-19. Ebola Screen: No symptoms or risks identified at this time. Initial Sepsis Screen: Does the patient meet any 2 criteria? No. Patient's initial sepsis screen is negative. Does the patient have a suspected source of infection? No. Patient's initial sepsis screen is negative. Risk Assessment: Do you want to hurt yourself or someone else? Patient reports no desire to harm self or others. Onset of symptoms was July 04, 2022. 19:37 Method Of Arrival: EMS: [facility] as6 19:37 Acuity: ALYCIA 3 as6 19:39 Care prior to arrival: Medication(s) given: zofran 4 mg, Fentnyl 150mg IV initiated. 20 as6 GA, in the right antecubital area. Historical: - Allergies: 19:40 PENICILLINS; as6 - PMHx: 19:40 Hypertensive disorder; as6 - PSHx: 19:40 None; as6 - Immunization history:: Client reports receiving the 2nd dose of the Covid vaccine, pfizer. - Social history:: Smoking status: Patient reports the use of cigarette tobacco products, smokes one pack cigarettes per day. - Family history:: not pertinent. - Hospitalizations: : No recent hospitalization is reported. Screenin:44 Abuse screen: Denies threats or abuse. Denies injuries from another. Nutritional as6 screening: No deficits noted. Tuberculosis screening: No symptoms or risk factors identified. Fall Risk None identified. Assessment: 19:40 General: Appears uncomfortable, Behavior is calm, cooperative. Pain: Complains of pain as6 in back. Neuro: Level of Consciousness is awake, alert. Respiratory: Respiratory effort is even, unlabored. Musculoskeletal: Reports pain in back. Vital Signs: 19:37 BP 136 / 102; Pulse 112; Resp 12 S; Temp 98.3(O); Pulse Ox 96% on R/A; Weight 80.74 kg as6 (R); Height 5 ft. 10 in. (177.80 cm) (R); Pain 1/10; 20:44 BP 133 / 88; Pulse 70; Resp 19; Pulse Ox 96% on R/A; ld1 21:23 BP 128 / 88; Pulse 69; Resp 14 S; Pulse Ox 100% on R/A; Pain 0/10; aa9 19:37 Body Mass Index 25.54 (80.74 kg, 177.80 cm) as6 ED Course: 19:37 Patient arrived in ED. as6 19:39 Triage completed. as6 19:40 Arm band placed on. as6 19:41 Guillermo Ron MD is Attending Physician. rn 19:44 Jude Hua, MEHRDAD is Primary Nurse. as6 19:44 Bed in low position. Call light in reach. Side rails up X2. Adult w/ patient. Client as6 placed on continuous cardiac and pulse oximetry monitoring. NIBP monitoring applied. Warm blanket given. 20:19 CT Lumbar Spine Wo Con In Process Unspecified. EDMS 21:23 No provider procedures requiring assistance completed. IV discontinued, intact, aa9 bleeding controlled, No redness/swelling at site. Pressure dressing applied. Administered Medications: 19:52 Drug: Demerol (meperidine) 25 mg Route: IVP; Site: right antecubital; as6 19:52 Drug: Ketorolac 15 mg Route: IVP; Site: right antecubital; as6 Medication: 21:24 VIS not applicable for this client. aa9 Outcome: 21:10 Discharge ordered by . rn 21:24 Condition: stable aa9 21:24 Discharge instructions given to patient, Instructed on discharge instructions, follow up and referral plans. medication usage, Demonstrated understanding of instructions, follow-up care, medications, Prescriptions given X 1. 21:49 Discharged to home ambulatory, with family. as6 21:49 Patient left the ED. as6 Signatures: Dispatcher [employer] EDMS Guillermo Ron MD MD rn Dibbern, Lauren, RN RN ld1 Jude Hua RN RN as6 Cristy Glover RN RN aa9
[2022-07-04 23:24] VITALS: TEMP 98.3
[2022-07-04 23:36] VITALS: BP 128/88; O2SAT 100
== END 2022-07-04 21:49 | disposition home or self-care (01) ==
LOC: ER 19:32
DX: M51.26 Other intervertebral disc displacement, lumbar region (principal); I10 Essential (primary) hypertension; F17.210 Nicotine dependence, cigarettes, uncomplicated; Z88.0 Allergy status to penicillin
CPT/HCPCS: 72131; J2175